=== PATIENT | male | born 1960 | race Caucasian/White ===

== ENCOUNTER 2018-03-09 11:00 | Emergency (ER) | payer OTHER ==
[~2018-03-09] VITALS: Ht 175.3 cm; Wt 88.4 kg
[~2018-03-09 11:00] MED LIST: ASPIR 8181 M1 PO; ASPIR-TRIN325 M1 PO; ASPIRIN EC325 MG PO; ATORVASTATIN CA40 MG PO; AUGMENTIN875 MG PO; BACTRIM,SEPT1 TABLET PO; EFFIENT10 MG PO; ELAVIL100 MG PO; EPIPEN ADU0.3 MG/0.3 IM; FLEXERIL5 MG PO; GLUCOPHAGE500 MG PO; LEVAQUIN500 MG PO; LEXAPRO20 MG PO; LISINOPRIL5 MG PO; LO-DOSE ASPIRIN81 M1 PO; LOPRESSOR25 MG PO; LYRICA50 MG PO; METFORMIN HCL500 MG PO; NAPROSYN500 MG PO; NAPROXEN500 MG PO; NITROSTAT0.4 MG SL; PEPCID40 MG PO; PERCOCET 5/31 TABLET PO; PRAVACHOL10 MG PO; PREDNISONE20 MG PO; PRINIVIL10 MG PO; PROVENTIL HFA6.7 GM IH; ROBITUSSIN AC,T10 ML PO; SIMVASTATIN5 MG PO; SKELAXIN800 MG PO; THERA-D2000 UNIT PO; TOPROL XL6.25 MG PO; VITAMIN D400 UNIT PO; ZITHROMAX250 MG PO
[2018-03-09 11:52] LABS: HEMATOCRIT 44.8 % (38.0-50.0); MCH 31.1 PG (29.0-34.0); MCHC 33.5 G/DL (30.0-36.0); MCV 92.9 FL (86-99); PLATELET COUNT 221 K/uL (156-360); RBC DIS.WIDTH-CV 12.8 % (11.8-14.6); RBC DIS.WIDTH-SD 43.8 % (39-53); RED BLOOD COUNT 4.82 M/uL (4.00-5.50)
[2018-03-09 12:07] LABS: CHLORIDE 105 mEq/L (99-109); POTASSIUM 4.1 mEq/L (3.7-5.4); SODIUM 137 mEq/L (136-147)
[2018-03-09 12:09] LABS: GLUCOSE 270 mg/dL (70-99)
[2018-03-09 12:13] LABS: CREATININE 1.2 mg/dL (0.6-1.3); GFR ESTIMATE (CALCULATED) > 59 mL/min/ (58.99-99999)
[2018-03-09 12:14] LABS: UREA NITROGEN (BUN) 9 mg/dL (9-23)
[2018-03-09 12:16] LABS: TROP-I INTERPRETATION NEGATIVE; TROPONIN-I < 0.01 ng/mL (0.0-0.30)
[2018-03-09 15:25] LABS: TROP-I INTERPRETATION NEGATIVE; TROPONIN-I 0.01 ng/mL (0.0-0.30)
[2018-03-09] MEDS ORDERED: ZITHROMAX Z-PA250 MG PO (15:45)
[2018-03-09] MEDS ORDERED: PREDNISONE20 MG PO (15:45)
[2018-03-09] MEDS ORDERED: VENTOLIN HFA18 GM IH (15:45)
[2018-03-09 16:00] VITALS: BP 136/80
== END 2018-03-09 16:02 | disposition home or self-care (01) ==
LOC: EME 11:00
PROVIDERS: Physician Assistant Medical
DX: J20.9 Acute bronchitis, unspecified (principal); F32.9 Major depressive disorder, single episode, unspecified; I25.2 Old myocardial infarction; Z95.1 Presence of aortocoronary bypass graft; F17.200 Nicotine dependence, unspecified, uncomplicated; Z79.82 Long term (current) use of aspirin; Z88.0 Allergy status to penicillin; Z88.8 Allergy status to other drugs, medicaments and biological substances
CPT/HCPCS: 71046; 80048; 84484; 85027; 93005; 94640; 99281; 99284

== ENCOUNTER 2018-05-28 05:56 | Emergency (ER) | payer OTHER ==
[~2018-05-28] VITALS: Ht 175.3 cm; Wt 88.0 kg
[~2018-05-28 05:56] MED LIST changes: +VENTOLIN HFA18 GM IH; +ZITHROMAX Z-PA250 MG PO
[2018-05-28 06:11] LABS: BASOPHIL (%) 0.7 % (0-1); BASOPHIL COUNT 0.1 K/uL (0-0.1); EOSINOPHIL (%) 1.7 % (0-5); EOSINOPHIL COUNT 0.4 K/uL (0-0.3); HEMATOCRIT 39.5 % (38.0-50.0); HEMOGLOBIN 13.4 G/DL (12.5-16.6); IMMATURE GRANULOCYTE (%) 1.4 % (0.0-0.7); LYMPHOCYTE (%) 23.8 % (15-42); MCH 31.5 PG (29.0-34.0); MCHC 33.9 G/DL (30.0-36.0); MCV 92.9 FL (86-99); MONOCYTE (%) 2.8 % (3-12); MONOCYTE COUNT 0.6 K/uL (0-0.8); NEUTROPHIL (%) 69.6 % (45-76); NEUTROPHIL COUNT 14.6 K/uL (1.8-6.4); PLATELET COUNT 294 K/uL (156-360); RBC DIS.WIDTH-CV 13.5 % (11.8-14.6); RBC DIS.WIDTH-SD 45.8 % (39-53); RED BLOOD COUNT 4.25 M/uL (4.00-5.50)
[2018-05-28 06:43] LABS: AMYLASE 96 IU/L (1-118); CHLORIDE 105 MEQ/L (99-109); CREATININE 1.4 MG/DL (0.6-1.3); GFR ESTIMATE (CALCULATED) 56 mL/min/ (58.99-99999); GLUCOSE 339 mg/dL (70-99); LIPASE 218 U/L (1.0-51.0); POTASSIUM 3.3 MEQ/L (3.7-5.4); SODIUM 137 MEQ/L (136-147); UREA NITROGEN (BUN) 13 mg/dL (9-23)
[2018-05-28 06:48] LABS: SERUM ETHYL ALCOHOL < 10 mg/dL
[2018-05-28 07:56] LABS: APPEARANCE CLEAR ((CLEAR)); BILIRUBIN NEGATIVE; BLOOD SMALL; COLOR STRAW ((YELLOW)); GLUCOSE (STRIP) 150; KETONES NEGATIVE; LEUKOCYTES NEGATIVE; NITRITE NEGATIVE; PROTEIN (STRIP) 30; SPECIFIC GRAVITY 1.013 (1.000-1.030); UROBILINOGEN 0.2 MG/DL (0.2-1.0)
[2018-05-28 07:59] LABS: BACTERIA NONE SEEN /HPF; EPITHELIAL CELLS NONE SEEN /HPF; MUCUS NONE SEEN /LPF; RED BLOOD CELLS 0-5 /HPF (0-5); UCUL ADDED? NO; WHITE BLOOD CELLS 0-5 /HPF (0-5)
[2018-05-28 08:05] LABS: AMPHETAMINE NEGATIVE (500 ng/mL); BARBITURATES NEGATIVE (200 ng/mL); BENZODIAZEPINES NEGATIVE (150 ng/mL); BUPRENORPHINE NEGATIVE (10 ng/mL); COCAINE NEGATIVE (150 ng/mL); METHADONE NEGATIVE (200 ng/mL); METHAMPHETAMINE NEGATIVE (500 ng/mL); OPIATES (MORPHINE) NEGATIVE (100 ng/mL); OXYCODONE NEGATIVE (100 ng/mL); PHENCYCLIDINE NEGATIVE (25 ng/mL); PROPOXYPHENE NEGATIVE (300 ng/mL); THC CANNABINOIDS NEGATIVE (50 ng/mL); TRICYCLIC ANTIDEPRESSANTS NEGATIVE (300 ng/mL)
== END 2018-05-28 09:08 | disposition short-term general hospital (02) ==
LOC: TRA 05:56
PROVIDERS: Emergency Medicine
PROC: 3E0234Z Introduction of Serum, Toxoid and Vaccine into Muscle, Percutaneous Approach (ICD-10-PCS; principal; 2018-05-28)
DX: S25.09XA Other specified injury of thoracic aorta, initial encounter (principal); S36.031A Moderate laceration of spleen, initial encounter; S01.91XA Laceration without foreign body of unspecified part of head, initial encounter; S22.43XA Multiple fractures of ribs, bilateral, initial encounter for closed fracture; S27.329A Contusion of lung, unspecified, initial encounter; S80.812A Abrasion, left lower leg, initial encounter; S80.811A Abrasion, right lower leg, initial encounter; S00.81XA Abrasion of other part of head, initial encounter; S20.219A Contusion of unspecified front wall of thorax, initial encounter; S30.1XXA Contusion of abdominal wall, initial encounter; S37.812A Contusion of adrenal gland, initial encounter; I45.10 Unspecified right bundle-branch block; I10 Essential (primary) hypertension; I25.2 Old myocardial infarction; Z95.1 Presence of aortocoronary bypass graft; E11.9 Type 2 diabetes mellitus without complications; Z79.84 Long term (current) use of oral hypoglycemic drugs; Z79.82 Long term (current) use of aspirin; Z23 Encounter for immunization; V49.9XXA Car occupant (driver) (passenger) injured in unspecified traffic accident, initial encounter; Z88.0 Allergy status to penicillin; F17.200 Nicotine dependence, unspecified, uncomplicated
CPT/HCPCS: 70450; 70486; 71260; 72125; 72129; 72133; 74177; 80048; 81003; 82150; 83690; 85025; 86850; 86900; 86901; 86920; 93005; 99281; 99285; G0480; J2405; J3010; P9016